=== PATIENT | male | born 1990 | race African-American/Black ===

== ENCOUNTER 2017-01-19 15:02 | Inpatient (IN) | payer BC ==
[~2017-01-19] VITALS: Ht 188 cm; Wt 150.6 kg
[2017-01-19] MEDS ORDERED: ONDANSETRON PF 4 MG/2 ML VIAL. IV ONE (16:00)
[2017-01-19] MEDS ORDERED: IV NORMAL SALINE 1000ML BAG 1,000 ML IV ONE (16:00)
[2017-01-19] MEDS ORDERED: NORMAL SALINE IV SCH (16:08)
[2017-01-19 16:19] LABS: BASO # 0.1 x10^3/uL (0.0-0.2); BASO % 1 % (0-3); EOS % 0 % (0-3); HEMATOCRIT 45.2 % (39.0-53.0); HEMOGLOBIN 15.7 g/dL (13.0-17.5); LYMPH # 2.2 x10^3/uL (1.0-4.8); LYMPH % 12 % (24-48); MEAN CORPUSCULAR HEMOGLOBIN 31 pg (25-35); MEAN CORPUSCULAR HGB CONC 35 g/dL (31-37); MEAN CORPUSCULAR VOLUME 89 fL (79-100); MONO % 7 % (0-9); NEUT % 80 % (31-73); PLATELET COUNT 321 x10^3/uL (140-400); RED BLOOD COUNT 5.09 x10^6/uL (4.30-5.70); RED CELL DISTRIBUTION WIDTH 12.9 % (11.5-14.5); WHITE BLOOD COUNT 18.1 x10^3/uL (4.0-11.0)
[2017-01-19] MEDS: IV NORMAL SALINE 1000ML BAG 1,000 ML IV SCH ×5 (16:27→20:55)
[2017-01-19] MEDS ORDERED: ACETAMINOPHEN 500 MG TABLET PO ONE (16:30)
[2017-01-19 16:35] LABS: CALCIUM 8.9 mg/dL (8.5-10.1); CREATININE 1.2 mg/dL (0.7-1.3); GFR 87.9; POTASSIUM 3.9 mmol/L (3.5-5.1)
--- NOTE | 2017-01-19 16:35 | EKG ---
[facility] [address] [place] [address] Test Date: 2017-01-19 Test Time: 16:32:16 Pat Name: JANNETH ROBLERO Department: Room: Gender: M [employer]: CODI : 1990 Requested By: RACHEL COLE Order Number: [id number] Reading MD: Irma Martinez Measurements Intervals [place] Rate: 113 P: 41 VT: 158 QRS: 49 QRSD: 82 T: 30 QT: 304 QTc: 422 Interpretive Statements SINUS TACHYCARDIA QRS(T) CONTOUR ABNORMALITY CONSIDER ANTEROLATERAL MYOCARDIAL DAMAGE RI6.01 No previous ECG available for comparison Electronically Signed On 01-20-2017 18:18:10 CDT by Irma Martinez
[2017-01-19 16:40] LABS: INR 1.1 (0.8-1.1); PARTIAL THROMBOPLASTIN TIME 28 SEC (24-38); PROTHROMBIN TIME PATIENT 13.2 SEC (11.7-14.0)
[2017-01-19 16:49] LABS: ALBUMIN 3.6 g/dL (3.4-5.0); ALBUMIN/GLOBULIN RATIO 0.8 (1.0-1.7); TOTAL BILIRUBIN 0.8 mg/dL (0.2-1.0); TOTAL PROTEIN 8.4 g/dL (6.4-8.2)
[2017-01-19 16:52] LABS: PLT ESTIMATE ADEQUATE (ADEQUATE)
--- NOTE | 2017-01-19 16:57 | RAD ---
Indication chest pain. A single view of the chest was obtained. No prior imaging of the chest is available. Heart size is at the upper limits of normal. There is no congestive heart failure or focal infiltrate. Significant pleural fluid is not present. IMPRESSION: No acute or focal process is seen in the chest
[2017-01-19 17:21] LABS: OBC FLU VALID
[2017-01-19] MEDS ORDERED: IOHEXOL 300 MG/ML 75 ML VIAL IV ONE (18:00)
[2017-01-19] MEDS ORDERED: CONTRAST GIVEN MC PRN (18:15)
[2017-01-19 18:34] LABS: BILIRUBIN,URINE NEGATIVE (NEG); GLUCOSE,URINE NEGATIVE (NEG); NITRITE,URINE NEGATIVE (NEG); PROTEIN,URINE NEGATIVE (NEG-TRACE)
--- NOTE | 2017-01-19 18:36 | RAD ---
PROCEDURE CT of the soft tissue neck with contrast HISTORY Sore throat. Fever. Nausea. TECHNIQUE Standard imaging after intravenous contrast. Exposure: One or more of the following individualized dose reduction techniques were utilized for this exam: 1. Automated exposure control. 2. Adjustment of the mA and/or kV according to patient size. 3. Use of iterative reconstruction technique. COMPARISON None FINDINGS There is limited detail on the images, presumably due to patient body habitus. Orbits appear unremarkable. [id number] mucosal thickening of the right maxillary sinus. Deficiency of the medial wall the right maxillary sinus could be due to destruction or prior surgery. Mucous retention cyst identified in the left maxillary sinus. Deviation of the nasal septum to the left. There is moderate to severe enlargement of the lingual tonsil, palatine tonsil and adenoids. These findings result in severe airway narrowing, with apparent complete occlusion at the level of the tonsils. No evidence parapharyngeal abscess at this time. The submandibular glands and the parotid glands appear unremarkable. Mild cervical lymph node enlargement on the right, largest measuring 19 millimeters. Mild left cervical lymph node enlargement, largest measuring 23 millimeters. No obvious thyroid lesion is seen. Lung apices appear clear. The temporomandibular joints demonstrate anterior subluxation bilaterally. Poor evaluation of the cervical vertebrae due to the artifact on the study. IMPRESSION 1. Moderate to severe enlargement of the lingual tonsils, palatine tonsils and adenoids, resulting in severe pharyngeal airway narrowing/occlusion. 2. No evidence of parapharyngeal abscess at this time. 3. Note there is some degradation of image quality due to body habitus. 4. Maxillary sinus disease. 5. Mild bilateral cervical lymph node enlargement. Electronically signed by: Brayan Malik MD (January 19, 2017 18:35:25)
[2017-01-19 18:40] LABS: BARBITURATES NEG (NEG); BENZODIAZEPINES NEG (NEG); CANNABINOIDS NEG (NEG); COCAINE NEG (NEG); METHADONE NEG (NEG); OPIATES POS (NEG); PHENCYCLIDINE NEG (NEG)
--- NOTE | 2017-01-19 18:44 | PHYS DOC ---
Past Medical History Past Medical History: No Pertinent History Past Surgical History: No Surgical History Alcohol Use: Occasionally Drug Use: None Adult General Chief Complaint Chief Complaint: SORE THROAT HPI HPI Patient is a 26 year old male who presents with complaint of fever and sore throat. Patient states symptoms started this morning upon awakening. Patient states he feels short of breath. Found to have O2 sat of 92% at triage. Admits to productive cough. Denies significant past medical history. Patient has not taken any medications for symptoms. Works in a [employer] and currently traveling from [place] where patient currently resides. States pain is severe and makes it difficult to swallow. Review of Systems Review of Systems Constitutional: Fever, chills [] Eyes: Denies change in visual acuity, redness, or eye pain [] HENT: Sore throat [] Respiratory: Cough, shortness of breath [] Cardiovascular: Denies chest pain[] GI: Denies abdominal pain, nausea, vomiting, bloody stools or diarrhea [] : Denies dysuria or hematuria [] Musculoskeletal: Bodyaches [] Integument: Denies rash or skin lesions [] Neurologic: Headache, denies focal weakness or sensory changes [] Current Medications Current Medications Current Medications Medications (Trade) Dose Ordered Sig/Beba Start Time Stop Time Status Last Admin Dose Admin Acetaminophen (Tylenol) 1,000 mg 1X ONCE 01/19/17 16:30 01/19/17 16:31 DC 01/19/17 16:59 1,000 MG Info (Do NOT chart on this entry -- for MONITORING) 1 each PRN DAILY PRN 01/19/17 18:15 01/21/17 18:14 Iohexol (Omnipaque 300 Mg/ml) 75 ml 1X ONCE 01/19/17 18:00 01/19/17 18:01 DC 01/19/17 18:03 75 ML Ondansetron HCl (Zofran) 4 mg 1X ONCE 01/19/17 16:00 01/19/17 16:02 DC 01/19/17 16:27 4 MG Sodium Chloride 1,000 ml @ 1,060 mls/hr Q57M 01/19/17 16:30 01/19/17 20:07 DC 01/19/17 19:06 1,060 MLS/HR Allergies Allergies Allergies Coded Allergies Type Severity Reaction Last Updated Verified No Known Drug Allergies 01/19/17 No Physical Exam Physical Exam Constitutional: Alert, febrile, appears ill and in moderate respiratory distress. [] HENT: Normocephalic, atraumatic, bilateral external ears normal, oropharynx erythematous, tonsillar swelling bilaterally, no oral exudates, nose normal. [] Eyes: PERRLA, EOMI, conjunctiva normal, no discharge. [] Neck: Normal range of motion, no tenderness, supple, no stridor. [] Cardiovascular:Tachycardia, normal rhythm, no murmur [] Lungs & Thorax: Bilateral breath sounds clear to auscultation [] Abdomen: Bowel sounds normal, soft, no tenderness, no masses, no pulsatile masses. [] Skin: Warm, dry, no erythema, no rash. [] Back: No tenderness, no CVA tenderness. [] Extremities: No tenderness, no cyanosis, no clubbing, ROM intact, no edema. [] Neurologic: Alert and oriented X 3, normal motor function, normal sensory function, no focal deficits noted. [] Current Patient Data Vital Signs Vital Signs Date Time Temp Pulse Resp B/P (MAP) Pulse Ox O2 Delivery O2 Flow Rate FiO2 01/19/17 18:41 104 23 186/94 (124) 96 Nasal Cannula 01/19/17 18:13 98.6 2.0 98.6 Lab Values Laboratory Tests Test 01/19/17 16:05 01/19/17 16:10 01/19/17 16:30 01/19/17 18:25 White Blood Count 18.1 x10^3/uL (4.0-11.0) H Red Blood Count 5.09 x10^6/uL (4.30-5.70) Hemoglobin 15.7 g/dL (13.0-17.5) Hematocrit 45.2 % (39.0-53.0) Mean Corpuscular Volume 89 fL (79-100) Mean Corpuscular Hemoglobin 31 pg (25-35) Mean Corpuscular Hemoglobin Concent 35 g/dL (31-37) Red Cell Distribution Width 12.9 % (11.5-14.5) Platelet Count 321 x10^3/uL (140-400) Neutrophils (%) (Auto) 80 % (31-73) H Lymphocytes (%) (Auto) 12 % (24-48) L Monocytes (%) (Auto) 7 % (0-9) Eosinophils (%) (Auto) 0 % (0-3) Basophils (%) (Auto) 1 % (0-3) Neutrophils # (Auto) 14.5 x10^3uL (1.8-7.7) H Lymphocytes # (Auto) 2.2 x10^3/uL (1.0-4.8) Monocytes # (Auto) 1.2 x10^3/uL (0.0-1.1) H Eosinophils # (Auto) 0.0 x10^3/uL (0.0-0.7) Basophils # (Auto) 0.1 x10^3/uL (0.0-0.2) Segmented Neutrophils % 78 % (35-66) H Band Neutrophils % 6 % (0-9) Lymphocytes % 12 % (24-48) L Monocytes % 4 % (0-10) Platelet Estimate Adequate (ADEQUATE) Prothrombin Time 13.2 SEC (11.7-14.0) Prothrombin Time INR 1.1 (0.8-1.1) PTT 28 SEC (24-38) D-Dimer (Lynsey) < 0.27 ug/mlFEU Sodium Level 137 mmol/L (136-145) Potassium Level 3.9 mmol/L (3.5-5.1) Chloride Level 101 mmol/L (98-107) Carbon Dioxide Level 27 mmol/L (21-32) Anion Gap 9 (6-14) Blood Urea Nitrogen 10 mg/dL (8-26) Creatinine 1.2 mg/dL (0.7-1.3) Estimated GFR (Cockcroft-Gault) 87.9 BUN/Creatinine Ratio 8 (6-20) Glucose Level 95 mg/dL (70-99) Lactic Acid Level 1.7 mmol/L (0.4-2.0) Calcium Level 8.9 mg/dL (8.5-10.1) Total Bilirubin 0.8 mg/dL (0.2-1.0) Aspartate Amino Transferase (AST) 31 U/L (15-37) Alanine Aminotransferase (ALT) 56 U/L (16-63) Alkaline Phosphatase 58 U/L (46-116) Troponin I Quantitative < 0.017 ng/mL (0.000-0.055) Total Protein 8.4 g/dL (6.4-8.2) H Albumin 3.6 g/dL (3.4-5.0) Albumin/Globulin Ratio 0.8 (1.0-1.7) L Lipase 90 U/L (73-393) Procalcitonin < 0.10 ng/mL (0.00-0.10) Ethyl Alcohol Level < 10 mg/dL (0-10) Group A Streptococcus Rapid Negative (NEGATIVE) Influenza Type A Antigen Negative (NEGATIVE) Influenza Type B Antigen Negative (NEGATIVE) Urine Collection Type Unknown Urine Color Yellow Urine Clarity Clear Urine pH 7.0 Urine Specific [place] 1.025 Urine Protein Negative mg/dL (NEG-TRACE) Urine Glucose (UA) Negative mg/dL (NEG) Urine Ketones (Stick) Negative mg/dL (NEG) Urine Blood Negative (NEG) Urine Nitrite Negative (NEG) Urine Bilirubin Negative (NEG) Urine Urobilinogen Dipstick 1.0 mg/dL (0.2 mg/dL) Urine Leukocyte Esterase Small (NEG) Urine RBC Occ /HPF (0-2) Urine WBC 1-4 /HPF (0-4) Urine Squamous Epithelial Cells Few /LPF Urine Bacteria 0 /HPF (0-FEW) Urine Mucus Slight /LPF Urine Opiates Screen Pos (NEG) Urine Methadone Screen Neg (NEG) Urine Barbiturates Neg (NEG) Urine Phencyclidine Screen Neg (NEG) Urine Amphetamine/Methamphetamine Neg (NEG) Urine Benzodiazepines Screen Neg (NEG) Urine Cocaine Screen Neg (NEG) Urine Cannabinoids Screen Neg (NEG) Urine Ethyl Alcohol Neg (NEG) Test 01/19/17 18:40 Lactic Acid Level 0.8 mmol/L (0.4-2.0) Laboratory Tests 01/19/17 16:05 Laboratory Tests 01/19/17 16:05 EKG EKG Interpreted by me: Heart rate 113, sinus tachycardia, normal intervals, normal axis, no acute ST/T-wave abnormalities present [] Radiology/Procedures Radiology/Procedures [facility] [address] [place] [address] IMAGING REPORT Signed PATIENT: JANNETH ROBLERO ACCOUNT: [id number] : 1990 LOCATION: ER AGE: 26 SEX: M EXAM STATUS: REG ER ORD. PHYSICIAN: RACHEL COLE APRN REASON: chest pain PROCEDURE: PORTABLE CHEST 1V Indication chest pain. A single view of the chest was obtained. No prior imaging of the chest is available. Heart size is at the upper limits of normal. There is no congestive heart failure or focal infiltrate. Significant pleural fluid is not present. IMPRESSION: No acute or focal process is seen in the chest DICTATED and SIGNED BY: HUSSEIN KITCHEN MD DATE: 01/19/171652 CC: IFEANYI BROUSSARD MD; RACHEL COLE APRN; UNKNOWN PCP NAME ~ [facility] [address] [place] [address] IMAGING REPORT Signed PATIENT: JANNETH ROBLERO ACCOUNT: [id number] : 1990 LOCATION: ER AGE: 26 SEX: M EXAM STATUS: REG ER ORD. PHYSICIAN: IFEANYI BROUSSARD MD REASON: sore throat, fever, evaluate for deep space infection PROCEDURE: CT SOFT TISSUE NECK W/CONTRAST PROCEDURE CT of the soft tissue neck with contrast HISTORY Sore throat. Fever. Nausea. TECHNIQUE Standard imaging after intravenous contrast. Exposure: One or more of the following individualized dose reduction techniques were utilized for this exam: 1. Automated exposure control. 2. Adjustment of the mA and/or kV according to patient size. 3. Use of iterative reconstruction technique. COMPARISON None FINDINGS There is limited detail on the images, presumably due to patient body habitus. Orbits appear unremarkable. [id number] mucosal thickening of the right maxillary sinus. Deficiency of the medial wall the right maxillary sinus could be due to destruction or prior surgery. Mucous retention cyst identified in the left maxillary sinus. Deviation of the nasal septum to the left. There is moderate to severe enlargement of the lingual tonsil, palatine tonsil and adenoids. These findings result in severe airway narrowing, with apparent complete occlusion at the level of the tonsils. No evidence parapharyngeal abscess at this time. The submandibular glands and the parotid glands appear unremarkable. Mild cervical lymph node enlargement on the right, largest measuring 19 millimeters. Mild left cervical lymph node enlargement, largest measuring 23 millimeters. No obvious thyroid lesion is seen. Lung apices appear clear. The temporomandibular joints demonstrate anterior subluxation bilaterally. Poor evaluation of the cervical vertebrae due to the artifact on the study. IMPRESSION 1. Moderate to severe enlargement of the lingual tonsils, palatine tonsils and adenoids, resulting in severe pharyngeal airway narrowing/occlusion. 2. No evidence of parapharyngeal abscess at this time. 3. Note there is some degradation of image quality due to body habitus. 4. Maxillary sinus disease. 5. Mild bilateral cervical lymph node enlargement. Electronically signed by: Brayan Malik MD (January 19, 2017 18:35:25) DICTATED and SIGNED BY: BRAYAN MALIK MD DATE: 01/19/17 2725 CC: IFEANYI BROUSSARD MD; UNKNOWN PCP NAME ~ [] Course & Med Decision Making Course & Med Decision Making Pertinent Labs and Imaging studies reviewed. (See chart for details) Patient was given over 2 L of IV fluids and remained tachycardic in the emergency department. Patient has leukocytosis and fever with suspected source of infection in the throat. Patient's CT does not show evidence of retropharyngeal or peritonsillar abscess. Due to tonsillar thickening, the patient may still have pharyngeal cellulitis. Patient will be admitted to the hospital for further treatment. I spoke with Dr. Hi who accepted care patient in hospital. Patient started on Unasyn. Dragon Disclaimer Dragon Disclaimer This electronic medical record was generated, in whole or in part, using a voice recognition dictation system. Departure Departure Impression: Primary Impression: Sepsis Additional Impression: Acute pharyngitis Disposition: ADMITTED INPATIENT Admitting Physician: Laura Hi Condition: GUARDED Referrals: UNKNOWN PCP NAME (PCP) Problem Qualifiers Primary Impression: Sepsis Sepsis type: sepsis due to unspecified organism Qualified Codes: A41.9 - Sepsis, unspecified organism Additional Impression: Acute pharyngitis Pharyngitis/tonsillitis etiology: unspecified etiology Qualified Codes: J02.9 - Acute pharyngitis, unspecified IFEANYI BROUSSARD MD January 19, 2017 18:44
[2017-01-19 18:49] LABS: BACTERIA,URINE 0 /HPF (0-FEW); RBC,URINE OCC /HPF (0-2); SQUAMOUS EPITHELIAL CELL,UR FEW /LPF
[2017-01-19] MEDS ORDERED: AMPICILLIN/SULBACTAM 3 GM in IV NORMAL SALINE 100ML 100 ML IV ONE (19:00)
[2017-01-19] MEDS ORDERED: ONDANSETRON PF 4 MG/2 ML VIAL. IV PRN (19:15)
[2017-01-19] MEDS ORDERED: ACETAMINOPHEN 325 MG TABLET. PO PRN (19:15)
[2017-01-19] MEDS ORDERED: DEXAMETHASONE SOD PHOS 20 MG/5 ML VIAL. IV ONE (19:15)
[2017-01-19] MEDS ORDERED: fentaNYL PF VIAL 100 MCG/2 ML VIAL IV PRN (19:15)
[2017-01-19 20:27] VITALS: BP 166/115
[2017-01-19] MEDS ORDERED: AMLO10TA4 PO (20:27)
[2017-01-19] MEDS ORDERED: amLODIPine BESYLATE 10 MG TABLET PO ONE (20:45)
--- NOTE | 2017-01-19 21:58 | PDOC1 ---
History and Physical Date of Admission Date of Admission DATE: 01/19/17 TIME: 21:57 Identification/Chief Complaint Chief Complaint shortness of breath Problems: Source Source: Chart review, Patient History of Present Illness History of Present Illness Mr. Cook is a 26 year old male who presents with complaint of fever and sore throat. Patient states symptoms started this morning upon awakening. Patient states he feels short of breath. Found to have O2 sat of 92% at triage. Admits to productive cough. Denies significant past medical history. Patient has not taken any medications for symptoms. Works in a [employer] and currently traveling from [place] where patient currently resides. States pain is severe and makes it difficult to swallow. Past Medical History Cardiovascular: HTN Pulmonary: No pertinent hx GI: No pertinent hx Heme/Onc: No pertinent hx Hepatobiliary: No pertinent hx ENT: No pertinent hx Renal/: No pertinent hx Family History Family History: No Significant Social History Smoke: No ALCOHOL: none Drugs: None Current Problem List Problem List Problems Medical Problems: (1) Acute pharyngitis Status: Acute (2) Sepsis Status: Acute Problems: Current Medications Current Medications Current Medications Sodium Chloride 1,000 ml @ 1,000 mls/hr 1X ONCE IV ; Start 01/19/17 at 16:00; Stop 01/19/17 at 16:59; Status Cancel Ondansetron HCl (Zofran) 4 mg 1X ONCE IV Last administered on 01/19/17 16:27; Start 01/19/17 at 16:00; Stop 01/19/17 at 16:02; Status DC Sodium Chloride 4,230 ml @ 1,060 mls/hr Q4H IV ; Start 01/19/17 at 16:08; Status Cancel Acetaminophen (Tylenol) 1,000 mg 1X ONCE PO Last administered on 01/19/17 16: 59; Start 01/19/17 at 16:30; Stop 01/19/17 at 16:31; Status DC Sodium Chloride 1,000 ml @ 1,060 mls/hr Q57M IV Last administered on 01/19/17 19:06; Start 01/19/17 at 16:30; Stop 01/19/17 at 20:07; Status DC Iohexol (Omnipaque 300 Mg/ml) 75 ml 1X ONCE IV Last administered on 01/19/17 18:03; Start 01/19/17 at 18:00; Stop 01/19/17 at 18:01; Status DC Info (Do NOT chart on this entry -- for MONITORING) 1 each PRN DAILY PRN MC SEE COMMENTS; Start 01/19/17 at 18:15; Stop 01/21/17 at 18:14 Ampicillin Sodium/ Sulbactam Sodium 3 gm/Sodium Chloride 100 ml @ 200 mls/hr Q6HRS IV ; Start 01/20/17 at 00:00 Ampicillin Sodium/ Sulbactam Sodium 3 gm/Sodium Chloride 100 ml @ 200 mls/hr 1X ONCE IV Last administered on 01/19/17 18:55; Start 01/19/17 at 19:00; Stop 01/19/17 at 19:29; Status DC Dexamethasone Sodium Phosphate (Decadron) 12 mg 1X ONCE IV Last administered on 01/19/17 19:11; Start 01/19/17 at 19:15; Stop 01/19/17 at 19:16; Status DC Ondansetron HCl (Zofran) 4 mg PRN Q8HRS PRN IV NAUSEA/VOMITING; Start 01/19/17 at 19:15; Stop 01/20/17 at 19:14 Fentanyl Citrate (Fentanyl 2ml Vial) 50 mcg PRN Q2HR PRN IV PAIN Last administered on 01/19/17 20:54; Start 01/19/17 at 19:15; Stop 01/20/17 at 19:14 Sodium Chloride 1,000 ml @ 125 mls/hr Q8H IV Last administered on 01/19/17 20: 55; Start 01/19/17 at 19:30; Stop 01/20/17 at 19:29 Acetaminophen (Tylenol) 650 mg PRN Q4HRS PRN PO FEVER Last administered on 20:54; Start 01/19/17 at 19:15; Stop 01/20/17 at 19:14 Amlodipine Besylate (Norvasc) 10 mg DAILY PO ; Start 01/20/17 at 09:00 Amlodipine Besylate (Norvasc) 10 mg ONCE ONCE PO Last administered on 20:54; Start 01/19/17 at 20:45; Stop 01/19/17 at 20:46; Status DC Active Scripts Active Reported Norvasc (Amlodipine Besylate) 10 Mg Tablet 10 Mg PO DAILY Allergies Allergies: Coded Allergies: No Known Drug Allergies (Unverified , 01/19/17) ROS General: YES: Chills, Fatigue, No: Night Sweats, Malaise, Appetite, Other PSYCHOLOGICAL ROS: No: Anxiety, Behavioral Disorder, Concentration difficultie , Decreased libido, Depression, Disorientation, Hallucinations, Hostility, Irritablity, Memory difficulties, Mood Swings, Obsessive thoughts, Physical abuse, Sexual abuse, Sleep disturbances, Suicidal ideation, Other Eyes: No Blurry vision, No Decreased vision, No Double vision, No Dry eyes, No Excessive tearing, No Eye Pain, No Itchy Eyes, No Loss of vision, No Photophobia , No Scotomata, No Uses contacts, No Uses glasses, No Other Respiratory: YES: Shortness of breath, Tachypnea, No: Cough, Hemoptysis, Orthopnea, Pleuritic Pain, SOB with excertion, Sputum Changes, Stridor, Wheezing, Other Cardiovascular: No Chest Pain, No Palpitations, No Orthopnea, No Paroxysmal Noc. Dyspnea, No Edema, No Lt Headedness, No Other Genitourinary: No Dysuria, No Frequency, No Incontinence, No Hematuria, No Retention, No Discharge, No Urgency, No Pain, No Flank Pain, No Other, No , No , No , No , No , No , No Musculoskeletal: No Gait Disturbance, No Joint Pain, No Joint Stiffness, No Joint Swelling, No Muscle Pain, No Muscular Weakness, No Pain In:, No Swelling In:, No Other Neurological: No Behavorial Changes, No Bowel/Bladder ControlChng, No Confusion , No Dizziness, No Gait Disturbance, No Headaches, No Impaired Coord/balance, No Memory Loss, No Numbness/Tingling, No Seizures, No Speech Problems, No Tremors, No Visual Changes, No Weakness, No Other Skin: No Dry Skin, No Eczema, No Hair Changes, No Lumps, No Mole Changes, No Mottling, No Nail Changes, No Pruritus, No Rash, No Skin Lesion Changes, No Other, No Acne Physical Exam General: Alert, Oriented X3, Cooperative, No acute distress HEENT: Atraumatic, PERRLA, EOMI, Mucous membr. moist/pink, Other (OP exam, tonsils visibly enlarged, but area is patent) Lungs: Clear to auscultation Heart: no gallops, no murmurs Abdomen: Normal bowel sounds, Soft Rectal Exam: not examined Extremities: No clubbing, No cyanosis, No edema, Normal pulses Skin: No significant lesion Neuro: Normal speech, Normal tone, Cranial nerves 3-12 NL Psych/Mental Status: Mental status NL, Mood NL Vitals Vitals Vital Signs Date Time Temp Pulse Resp B/P (MAP) Pulse Ox O2 Delivery O2 Flow Rate FiO2 01/19/17 21:24 20 97 Room Air 01/19/17 20:54 106 166/115 01/19/17 20:27 99.0 99.0 01/19/17 19:11 2.0 Labs Labs Laboratory Tests Test 01/19/17 16:05 01/19/17 16:30 01/19/17 18:25 01/19/17 18:40 White Blood Count 18.1 x10^3/uL (4.0-11.0) Red Blood Count 5.09 x10^6/uL (4.30-5.70) Hemoglobin 15.7 g/dL (13.0-17.5) Hematocrit 45.2 % (39.0-53.0) Mean Corpuscular Volume 89 fL (79-100) Mean Corpuscular Hemoglobin 31 pg (25-35) Mean Corpuscular Hemoglobin Concent 35 g/dL (31-37) Red Cell Distribution Width 12.9 % (11.5-14.5) Platelet Count 321 x10^3/uL (140-400) Neutrophils (%) (Auto) 80 % (31-73) Lymphocytes (%) (Auto) 12 % (24-48) Monocytes (%) (Auto) 7 % (0-9) Eosinophils (%) (Auto) 0 % (0-3) Basophils (%) (Auto) 1 % (0-3) Neutrophils # (Auto) 14.5 x10^3uL (1.8-7.7) Lymphocytes # (Auto) 2.2 x10^3/uL (1.0-4.8) Monocytes # (Auto) 1.2 x10^3/uL (0.0-1.1) Eosinophils # (Auto) 0.0 x10^3/uL (0.0-0.7) Basophils # (Auto) 0.1 x10^3/uL (0.0-0.2) Segmented Neutrophils % 78 % (35-66) Band Neutrophils % 6 % (0-9) Lymphocytes % 12 % (24-48) Monocytes % 4 % (0-10) Platelet Estimate Adequate (ADEQUATE) Prothrombin Time 13.2 SEC (11.7-14.0) Prothromb Time International Ratio 1.1 (0.8-1.1) Activated Partial Thromboplast Time 28 SEC (24-38) D-Dimer (Lynsey) < 0.27 ug/mlFEU Sodium Level 137 mmol/L (136-145) Potassium Level 3.9 mmol/L (3.5-5.1) Chloride Level 101 mmol/L (98-107) Carbon Dioxide Level 27 mmol/L (21-32) Anion Gap 9 (6-14) Blood Urea Nitrogen 10 mg/dL (8-26) Creatinine 1.2 mg/dL (0.7-1.3) Estimated GFR (Cockcroft-Gault) 87.9 BUN/Creatinine Ratio 8 (6-20) Glucose Level 95 mg/dL (70-99) Lactic Acid Level 1.7 mmol/L (0.4-2.0) 0.8 mmol/L (0.4-2.0) Calcium Level 8.9 mg/dL (8.5-10.1) Total Bilirubin 0.8 mg/dL (0.2-1.0) Aspartate Amino Transf (AST/SGOT) 31 U/L (15-37) Alanine Aminotransferase (ALT/SGPT) 56 U/L (16-63) Alkaline Phosphatase 58 U/L (46-116) Troponin I Quantitative < 0.017 ng/mL (0.000-0.055) Total Protein 8.4 g/dL (6.4-8.2) Albumin 3.6 g/dL (3.4-5.0) Albumin/Globulin Ratio 0.8 (1.0-1.7) Lipase 90 U/L (73-393) Procalcitonin < 0.10 ng/mL (0.00-0.10) Ethyl Alcohol Level < 10 mg/dL (0-10) Influenza Type A Antigen Negative (NEGATIVE) Influenza Type B Antigen Negative (NEGATIVE) Urine Collection Type Unknown Urine Color Yellow Urine Clarity Clear Urine pH 7.0 Urine Specific [place] 1.025 Urine Protein Negative mg/dL (NEG-TRACE) Urine Glucose (UA) Negative mg/dL (NEG) Urine Ketones (Stick) Negative mg/dL (NEG) Urine Blood Negative (NEG) Urine Nitrite Negative (NEG) Urine Bilirubin Negative (NEG) Urine Urobilinogen Dipstick 1.0 mg/dL (0.2 mg/dL) Urine Leukocyte Esterase Small (NEG) Urine RBC Occ /HPF (0-2) Urine WBC 1-4 /HPF (0-4) Urine Squamous Epithelial Cells Few /LPF Urine Bacteria 0 /HPF (0-FEW) Urine Mucus Slight /LPF Urine Opiates Screen Pos (NEG) Urine Methadone Screen Neg (NEG) Urine Barbiturates Neg (NEG) Urine Phencyclidine Screen Neg (NEG) Urine Amphetamine/Methamphetamine Neg (NEG) Urine Benzodiazepines Screen Neg (NEG) Urine Cocaine Screen Neg (NEG) Urine Cannabinoids Screen Neg (NEG) Urine Ethyl Alcohol Neg (NEG) Laboratory Tests Test 01/19/17 16:05 01/19/17 16:30 01/19/17 18:25 01/19/17 18:40 White Blood Count 18.1 x10^3/uL (4.0-11.0) Red Blood Count 5.09 x10^6/uL (4.30-5.70) Hemoglobin 15.7 g/dL (13.0-17.5) Hematocrit 45.2 % (39.0-53.0) Mean Corpuscular Volume 89 fL (79-100) Mean Corpuscular Hemoglobin 31 pg (25-35) Mean Corpuscular Hemoglobin Concent 35 g/dL (31-37) Red Cell Distribution Width 12.9 % (11.5-14.5) Platelet Count 321 x10^3/uL (140-400) Neutrophils (%) (Auto) 80 % (31-73) Lymphocytes (%) (Auto) 12 % (24-48) Monocytes (%) (Auto) 7 % (0-9) Eosinophils (%) (Auto) 0 % (0-3) Basophils (%) (Auto) 1 % (0-3) Neutrophils # (Auto) 14.5 x10^3uL (1.8-7.7) Lymphocytes # (Auto) 2.2 x10^3/uL (1.0-4.8) Monocytes # (Auto) 1.2 x10^3/uL (0.0-1.1) Eosinophils # (Auto) 0.0 x10^3/uL (0.0-0.7) Basophils # (Auto) 0.1 x10^3/uL (0.0-0.2) Segmented Neutrophils % 78 % (35-66) Band Neutrophils % 6 % (0-9) Lymphocytes % 12 % (24-48) Monocytes % 4 % (0-10) Platelet Estimate Adequate (ADEQUATE) Prothrombin Time 13.2 SEC (11.7-14.0) Prothromb Time International Ratio 1.1 (0.8-1.1) Activated Partial Thromboplast Time 28 SEC (24-38) D-Dimer (Lynsey) < 0.27 ug/mlFEU Sodium Level 137 mmol/L (136-145) Potassium Level 3.9 mmol/L (3.5-5.1) Chloride Level 101 mmol/L (98-107) Carbon Dioxide Level 27 mmol/L (21-32) Anion Gap 9 (6-14) Blood Urea Nitrogen 10 mg/dL (8-26) Creatinine 1.2 mg/dL (0.7-1.3) Estimated GFR (Cockcroft-Gault) 87.9 BUN/Creatinine Ratio 8 (6-20) Glucose Level 95 mg/dL (70-99) Lactic Acid Level 1.7 mmol/L (0.4-2.0) 0.8 mmol/L (0.4-2.0) Calcium Level 8.9 mg/dL (8.5-10.1) Total Bilirubin 0.8 mg/dL (0.2-1.0) Aspartate Amino Transf (AST/SGOT) 31 U/L (15-37) Alanine Aminotransferase (ALT/SGPT) 56 U/L (16-63) Alkaline Phosphatase 58 U/L (46-116) Troponin I Quantitative < 0.017 ng/mL (0.000-0.055) Total Protein 8.4 g/dL (6.4-8.2) Albumin 3.6 g/dL (3.4-5.0) Albumin/Globulin Ratio 0.8 (1.0-1.7) Lipase 90 U/L (73-393) Procalcitonin < 0.10 ng/mL (0.00-0.10) Ethyl Alcohol Level < 10 mg/dL (0-10) Influenza Type A Antigen Negative (NEGATIVE) Influenza Type B Antigen Negative (NEGATIVE) Urine Collection Type Unknown Urine Color Yellow Urine Clarity Clear Urine pH 7.0 Urine Specific [place] 1.025 Urine Protein Negative mg/dL (NEG-TRACE) Urine Glucose (UA) Negative mg/dL (NEG) Urine Ketones (Stick) Negative mg/dL (NEG) Urine Blood Negative (NEG) Urine Nitrite Negative (NEG) Urine Bilirubin Negative (NEG) Urine Urobilinogen Dipstick 1.0 mg/dL (0.2 mg/dL) Urine Leukocyte Esterase Small (NEG) Urine RBC Occ /HPF (0-2) Urine WBC 1-4 /HPF (0-4) Urine Squamous Epithelial Cells Few /LPF Urine Bacteria 0 /HPF (0-FEW) Urine Mucus Slight /LPF Urine Opiates Screen Pos (NEG) Urine Methadone Screen Neg (NEG) Urine Barbiturates Neg (NEG) Urine Phencyclidine Screen Neg (NEG) Urine Amphetamine/Methamphetamine Neg (NEG) Urine Benzodiazepines Screen Neg (NEG) Urine Cocaine Screen Neg (NEG) Urine Cannabinoids Screen Neg (NEG) Urine Ethyl Alcohol Neg (NEG) VTE Prophylaxis Ordered VTE Prophylaxis Devices: No VTE Pharmacological Prophylaxi: Yes Assessment/Plan Assessment/Plan acute pharyngitis, SIRS, sepsis IV abx, IV steroid, IV benadryl ID consult pt feels much improved, is breathing much easier, SUNITHA SCHERER MD January 19, 2017 21:58
[2017-01-19] MEDS ORDERED: DEXAMETHASONE SOD PHOS 4 MG/ML VIAL IV SCH (22:30)
[2017-01-19] MEDS ORDERED: DEXTROSE 50% 25 GM / 50ML DISP.SYRIN. IV PRN (22:30)
[2017-01-19] MEDS ORDERED: diphenhydrAMINE 50 MG/ML VIAL IVP ONE (22:45)
[2017-01-19 23:07] VITALS: BP 196/110
[2017-01-19] MEDS: AMPICILLIN/SULBACTAM 3 GM in IV NORMAL SALINE 100ML 100 ML IV SCH (23:33)
--- NOTE | 2017-01-20 02:26 | ACF ---
Admit Criteria Forms Admit Criteria Forms Admit Criteria Forms SEPSIS and OTHER FEBRILE ILLNESS, W/O FOCAL INFECTION Clinical Indications for Admission to Inpatient Care ( Place 'X' for any and all applicable criteria): Admission is indicated for ANY ONE of the following (1)(2)(3)(4): [ ] I. Bacteremia [ ]II. Suspected or identified specific infection requiring hospitalization (eg, meningitis, endocarditis) [ ]III. Hemodynamic instability [ ]IV. Altered mental status [ ]V. Failure or unavailability of outpatient antimicrobial treatment [ ]. Hypoxemia [ ]VII. Seizures [ ]VIII. High-risk febrile neutropenia [ ]IX. Need for parenteral antibiotic in patient who is likely to abuse vascular access device (eg, injection drug user) [A](7) [ ]X. Temperature greater than 104.9 degrees F (40.5 degrees C) (oral) [X]XI. Inpatient admission required rather than observation care because of ANY ONE of the following: [X]1) Specific infection identified that is too severe for outpatient treatment or observation care trial [ ]2) Metabolic disorder (eg, hypoglycemia, hyperglycemia, metabolic acidosis) that is severe or persistent [ ]3) Temperature greater than 103.1 degrees F (39.5 degrees C) ( oral) that is not responsive to observation care treatment [ ]4) IV fluid to replace significant ongoing (eg, for over 24 hours) losses (> 3 L/m2 per day) [ ]5) Supplemental oxygen or respiratory treatments for over 24 hours that is performable only in acute inpatient setting [ ]6) Parenteral nutrition regimen need that must be implemented on inpatient basis [ ]7) Strict or protective (eg, laminar flow) isolation [ ]8) Other condition, treatment or monitoring requiring inpatient admission Extended stay beyond goal length of stay may be needed for(1)(3) [ ]a) Sepsis or septic shock(22) [ ]b) Positive blood cultures [ ]c) Insufficient oral intake [ ]d) High-risk febrile neutropenia(29)(30) [ ]e) Continued fever and clinical instability [ ]f) Clinically active comorbid illness (e.g,heart failure, renal failure , diabetes) The original [employer] content created by [email or web address] has been revised. The portions of the content which have been revised are identified through the use of italic text or in bold, and [facility] has neither reviewed nor approved the modified material. All other unmodified content is copyright [facility]. Please see references footnoted in the original [facility] edition 2016 YONNY ORO January 20, 2017 02:26
[2017-01-20 03:13] VITALS: BP 152/80
[2017-01-20] MEDS: IV NORMAL SALINE 1000ML BAG 1,000 ML IV SCH ×2 (03:30→11:20)
[2017-01-20] MEDS ORDERED: DEXAMETHASONE SOD PHOS 4 MG/ML VIAL IV ONE (05:15)
[2017-01-20] MEDS: AMPICILLIN/SULBACTAM 3 GM in IV NORMAL SALINE 100ML 100 ML IV SCH ×2 (05:19→12:17)
[2017-01-20 06:10] LABS: CALCIUM 9.1 mg/dL (8.5-10.1); CREATININE 1.1 mg/dL (0.7-1.3); GFR 97.2; POTASSIUM 4.4 mmol/L (3.5-5.1)
[2017-01-20 06:12] LABS: BASO % 0 % (0-3); EOS % 0 % (0-3); HEMATOCRIT 45.1 % (39.0-53.0); HEMOGLOBIN 15.4 g/dL (13.0-17.5); LYMPH # 1.8 x10^3/uL (1.0-4.8); LYMPH % 10 % (24-48); MEAN CORPUSCULAR HEMOGLOBIN 31 pg (25-35); MEAN CORPUSCULAR HGB CONC 34 g/dL (31-37); MEAN CORPUSCULAR VOLUME 92 fL (79-100); MONO % 2 % (0-9); NEUT % 88 % (31-73); PLATELET COUNT 329 x10^3/uL (140-400); RED BLOOD COUNT 4.93 x10^6/uL (4.30-5.70); RED CELL DISTRIBUTION WIDTH 12.8 % (11.5-14.5); WHITE BLOOD COUNT 18.5 x10^3/uL (4.0-11.0)
[2017-01-20 06:53] LABS: NEGATIVE OBC STREP NEG; POSITIVE OBC STREP POS
[2017-01-20 07:00] VITALS: BP 159/105
[2017-01-20] MEDS: INSULIN ASPART 300 UNITS/3 ML INSULN.PEN SQ SCH ×2 (08:00→11:21)
[2017-01-20] MEDS ORDERED: ENOXAPARIN 40 MG/0.4 ML SYRINGE. SQ SCH ×2 (09:00→21:00)
[2017-01-20] MEDS ORDERED: amLODIPine BESYLATE 10 MG TABLET PO SCH (09:00)
[2017-01-20] MEDS ORDERED: DEXAMETHASONE SOD PHOS 4 MG/ML VIAL IV SCH (09:00)
[2017-01-20 10:44] VITALS: BP 153/94
--- NOTE | 2017-01-20 13:43 | PDOC ---
PROGRESS NOTES Chief Complaint Chief Complaint acute pharyngitis, SIRS, sepsis morbid obesity, BMI 42 htn, norvasc at home History of Present Illness History of Present Illness s/p IV abx, IV steroid, IV benadryl pt feels much improved, is breathing much easier, would like DC home Vitals Vitals Vital Signs Date Time Temp Pulse Resp B/P (MAP) Pulse Ox O2 Delivery O2 Flow Rate FiO2 01/20/17 10:44 97.5 90 22 153/94 (113) 98 Nasal Cannula 3.0 97.5 Physical Exam General: Alert, Oriented X3, Cooperative, No acute distress Abdomen: Normal bowel sounds, Soft Extremities: No clubbing, No cyanosis, No edema, Normal pulses Skin: No significant lesion Labs LABS Laboratory Tests Test 01/19/17 16:05 01/19/17 16:10 01/19/17 16:30 01/19/17 18:25 White Blood Count 18.1 x10^3/uL (4.0-11.0) Red Blood Count 5.09 x10^6/uL (4.30-5.70) Hemoglobin 15.7 g/dL (13.0-17.5) Hematocrit 45.2 % (39.0-53.0) Mean Corpuscular Volume 89 fL (79-100) Mean Corpuscular Hemoglobin 31 pg (25-35) Mean Corpuscular Hemoglobin Concent 35 g/dL (31-37) Red Cell Distribution Width 12.9 % (11.5-14.5) Platelet Count 321 x10^3/uL (140-400) Neutrophils (%) (Auto) 80 % (31-73) Lymphocytes (%) (Auto) 12 % (24-48) Monocytes (%) (Auto) 7 % (0-9) Eosinophils (%) (Auto) 0 % (0-3) Basophils (%) (Auto) 1 % (0-3) Neutrophils # (Auto) 14.5 x10^3uL (1.8-7.7) Lymphocytes # (Auto) 2.2 x10^3/uL (1.0-4.8) Monocytes # (Auto) 1.2 x10^3/uL (0.0-1.1) Eosinophils # (Auto) 0.0 x10^3/uL (0.0-0.7) Basophils # (Auto) 0.1 x10^3/uL (0.0-0.2) Segmented Neutrophils % 78 % (35-66) Band Neutrophils % 6 % (0-9) Lymphocytes % 12 % (24-48) Monocytes % 4 % (0-10) Platelet Estimate Adequate (ADEQUATE) Prothrombin Time 13.2 SEC (11.7-14.0) Prothromb Time International Ratio 1.1 (0.8-1.1) Activated Partial Thromboplast Time 28 SEC (24-38) D-Dimer (Lynsey) < 0.27 ug/mlFEU Sodium Level 137 mmol/L (136-145) Potassium Level 3.9 mmol/L (3.5-5.1) Chloride Level 101 mmol/L (98-107) Carbon Dioxide Level 27 mmol/L (21-32) Anion Gap 9 (6-14) Blood Urea Nitrogen 10 mg/dL (8-26) Creatinine 1.2 mg/dL (0.7-1.3) Estimated GFR (Cockcroft-Gault) 87.9 BUN/Creatinine Ratio 8 (6-20) Glucose Level 95 mg/dL (70-99) Lactic Acid Level 1.7 mmol/L (0.4-2.0) Calcium Level 8.9 mg/dL (8.5-10.1) Total Bilirubin 0.8 mg/dL (0.2-1.0) Aspartate Amino Transf (AST/SGOT) 31 U/L (15-37) Alanine Aminotransferase (ALT/SGPT) 56 U/L (16-63) Alkaline Phosphatase 58 U/L (46-116) Troponin I Quantitative < 0.017 ng/mL (0.000-0.055) Total Protein 8.4 g/dL (6.4-8.2) Albumin 3.6 g/dL (3.4-5.0) Albumin/Globulin Ratio 0.8 (1.0-1.7) Lipase 90 U/L (73-393) Procalcitonin < 0.10 ng/mL (0.00-0.10) Ethyl Alcohol Level < 10 mg/dL (0-10) Group A Streptococcus Rapid Negative (NEGATIVE) Influenza Type A Antigen Negative (NEGATIVE) Influenza Type B Antigen Negative (NEGATIVE) Urine Collection Type Unknown Urine Color Yellow Urine Clarity Clear Urine pH 7.0 Urine Specific [place] 1.025 Urine Protein Negative mg/dL (NEG-TRACE) Urine Glucose (UA) Negative mg/dL (NEG) Urine Ketones (Stick) Negative mg/dL (NEG) Urine Blood Negative (NEG) Urine Nitrite Negative (NEG) Urine Bilirubin Negative (NEG) Urine Urobilinogen Dipstick 1.0 mg/dL (0.2 mg/dL) Urine Leukocyte Esterase Small (NEG) Urine RBC Occ /HPF (0-2) Urine WBC 1-4 /HPF (0-4) Urine Squamous Epithelial Cells Few /LPF Urine Bacteria 0 /HPF (0-FEW) Urine Mucus Slight /LPF Urine Opiates Screen Pos (NEG) Urine Methadone Screen Neg (NEG) Urine Barbiturates Neg (NEG) Urine Phencyclidine Screen Neg (NEG) Urine Amphetamine/Methamphetamine Neg (NEG) Urine Benzodiazepines Screen Neg (NEG) Urine Cocaine Screen Neg (NEG) Urine Cannabinoids Screen Neg (NEG) Urine Ethyl Alcohol Neg (NEG) Test 01/19/17 18:40 01/20/17 05:30 01/20/17 11:04 Lactic Acid Level 0.8 mmol/L (0.4-2.0) White Blood Count 18.5 x10^3/uL (4.0-11.0) Red Blood Count 4.93 x10^6/uL (4.30-5.70) Hemoglobin 15.4 g/dL (13.0-17.5) Hematocrit 45.1 % (39.0-53.0) Mean Corpuscular Volume 92 fL (79-100) Mean Corpuscular Hemoglobin 31 pg (25-35) Mean Corpuscular Hemoglobin Concent 34 g/dL (31-37) Red Cell Distribution Width 12.8 % (11.5-14.5) Platelet Count 329 x10^3/uL (140-400) Neutrophils (%) (Auto) 88 % (31-73) Lymphocytes (%) (Auto) 10 % (24-48) Monocytes (%) (Auto) 2 % (0-9) Eosinophils (%) (Auto) 0 % (0-3) Basophils (%) (Auto) 0 % (0-3) Neutrophils # (Auto) 16.3 x10^3uL (1.8-7.7) Lymphocytes # (Auto) 1.8 x10^3/uL (1.0-4.8) Monocytes # (Auto) 0.4 x10^3/uL (0.0-1.1) Eosinophils # (Auto) 0.0 x10^3/uL (0.0-0.7) Basophils # (Auto) 0.0 x10^3/uL (0.0-0.2) Sodium Level 137 mmol/L (136-145) Potassium Level 4.4 mmol/L (3.5-5.1) Chloride Level 103 mmol/L (98-107) Carbon Dioxide Level 26 mmol/L (21-32) Anion Gap 8 (6-14) Blood Urea Nitrogen 11 mg/dL (8-26) Creatinine 1.1 mg/dL (0.7-1.3) Estimated GFR (Cockcroft-Gault) 97.2 Glucose Level 130 mg/dL (70-99) Calcium Level 9.1 mg/dL (8.5-10.1) Glucose (Fingerstick) 148 mg/dL (70-99) Review of Systems Review of Systems no n..v/d no dyspnea swallowing OK Assessment and Plan Assessmemt and Plan Problems Medical Problems: (1) Acute pharyngitis Status: Acute (2) Sepsis Status: Acute Problems: Comment Review of Relevant I have reviewed the following items gail (where applicable) has been applied. Labs Laboratory Tests Test 01/19/17 16:05 01/19/17 16:10 01/19/17 16:30 01/19/17 18:25 White Blood Count 18.1 x10^3/uL (4.0-11.0) Red Blood Count 5.09 x10^6/uL (4.30-5.70) Hemoglobin 15.7 g/dL (13.0-17.5) Hematocrit 45.2 % (39.0-53.0) Mean Corpuscular Volume 89 fL (79-100) Mean Corpuscular Hemoglobin 31 pg (25-35) Mean Corpuscular Hemoglobin Concent 35 g/dL (31-37) Red Cell Distribution Width 12.9 % (11.5-14.5) Platelet Count 321 x10^3/uL (140-400) Neutrophils (%) (Auto) 80 % (31-73) Lymphocytes (%) (Auto) 12 % (24-48) Monocytes (%) (Auto) 7 % (0-9) Eosinophils (%) (Auto) 0 % (0-3) Basophils (%) (Auto) 1 % (0-3) Neutrophils # (Auto) 14.5 x10^3uL (1.8-7.7) Lymphocytes # (Auto) 2.2 x10^3/uL (1.0-4.8) Monocytes # (Auto) 1.2 x10^3/uL (0.0-1.1) Eosinophils # (Auto) 0.0 x10^3/uL (0.0-0.7) Basophils # (Auto) 0.1 x10^3/uL (0.0-0.2) Segmented Neutrophils % 78 % (35-66) Band Neutrophils % 6 % (0-9) Lymphocytes % 12 % (24-48) Monocytes % 4 % (0-10) Platelet Estimate Adequate (ADEQUATE) Prothrombin Time 13.2 SEC (11.7-14.0) Prothromb Time International Ratio 1.1 (0.8-1.1) Activated Partial Thromboplast Time 28 SEC (24-38) D-Dimer (Lynsey) < 0.27 ug/mlFEU Sodium Level 137 mmol/L (136-145) Potassium Level 3.9 mmol/L (3.5-5.1) Chloride Level 101 mmol/L (98-107) Carbon Dioxide Level 27 mmol/L (21-32) Anion Gap 9 (6-14) Blood Urea Nitrogen 10 mg/dL (8-26) Creatinine 1.2 mg/dL (0.7-1.3) Estimated GFR (Cockcroft-Gault) 87.9 BUN/Creatinine Ratio 8 (6-20) Glucose Level 95 mg/dL (70-99) Lactic Acid Level 1.7 mmol/L (0.4-2.0) Calcium Level 8.9 mg/dL (8.5-10.1) Total Bilirubin 0.8 mg/dL (0.2-1.0) Aspartate Amino Transf (AST/SGOT) 31 U/L (15-37) Alanine Aminotransferase (ALT/SGPT) 56 U/L (16-63) Alkaline Phosphatase 58 U/L (46-116) Troponin I Quantitative < 0.017 ng/mL (0.000-0.055) Total Protein 8.4 g/dL (6.4-8.2) Albumin 3.6 g/dL (3.4-5.0) Albumin/Globulin Ratio 0.8 (1.0-1.7) Lipase 90 U/L (73-393) Procalcitonin < 0.10 ng/mL (0.00-0.10) Ethyl Alcohol Level < 10 mg/dL (0-10) Group A Streptococcus Rapid Negative (NEGATIVE) Influenza Type A Antigen Negative (NEGATIVE) Influenza Type B Antigen Negative (NEGATIVE) Urine Collection Type Unknown Urine Color Yellow Urine Clarity Clear Urine pH 7.0 Urine Specific [place] 1.025 Urine Protein Negative mg/dL (NEG-TRACE) Urine Glucose (UA) Negative mg/dL (NEG) Urine Ketones (Stick) Negative mg/dL (NEG) Urine Blood Negative (NEG) Urine Nitrite Negative (NEG) Urine Bilirubin Negative (NEG) Urine Urobilinogen Dipstick 1.0 mg/dL (0.2 mg/dL) Urine Leukocyte Esterase Small (NEG) Urine RBC Occ /HPF (0-2) Urine WBC 1-4 /HPF (0-4) Urine Squamous Epithelial Cells Few /LPF Urine Bacteria 0 /HPF (0-FEW) Urine Mucus Slight /LPF Urine Opiates Screen Pos (NEG) Urine Methadone Screen Neg (NEG) Urine Barbiturates Neg (NEG) Urine Phencyclidine Screen Neg (NEG) Urine Amphetamine/Methamphetamine Neg (NEG) Urine Benzodiazepines Screen Neg (NEG) Urine Cocaine Screen Neg (NEG) Urine Cannabinoids Screen Neg (NEG) Urine Ethyl Alcohol Neg (NEG) Test 01/19/17 18:40 01/20/17 05:30 01/20/17 11:04 Lactic Acid Level 0.8 mmol/L (0.4-2.0) White Blood Count 18.5 x10^3/uL (4.0-11.0) Red Blood Count 4.93 x10^6/uL (4.30-5.70) Hemoglobin 15.4 g/dL (13.0-17.5) Hematocrit 45.1 % (39.0-53.0) Mean Corpuscular Volume 92 fL (79-100) Mean Corpuscular Hemoglobin 31 pg (25-35) Mean Corpuscular Hemoglobin Concent 34 g/dL (31-37) Red Cell Distribution Width 12.8 % (11.5-14.5) Platelet Count 329 x10^3/uL (140-400) Neutrophils (%) (Auto) 88 % (31-73) Lymphocytes (%) (Auto) 10 % (24-48) Monocytes (%) (Auto) 2 % (0-9) Eosinophils (%) (Auto) 0 % (0-3) Basophils (%) (Auto) 0 % (0-3) Neutrophils # (Auto) 16.3 x10^3uL (1.8-7.7) Lymphocytes # (Auto) 1.8 x10^3/uL (1.0-4.8) Monocytes # (Auto) 0.4 x10^3/uL (0.0-1.1) Eosinophils # (Auto) 0.0 x10^3/uL (0.0-0.7) Basophils # (Auto) 0.0 x10^3/uL (0.0-0.2) Sodium Level 137 mmol/L (136-145) Potassium Level 4.4 mmol/L (3.5-5.1) Chloride Level 103 mmol/L (98-107) Carbon Dioxide Level 26 mmol/L (21-32) Anion Gap 8 (6-14) Blood Urea Nitrogen 11 mg/dL (8-26) Creatinine 1.1 mg/dL (0.7-1.3) Estimated GFR (Cockcroft-Gault) 97.2 Glucose Level 130 mg/dL (70-99) Calcium Level 9.1 mg/dL (8.5-10.1) Glucose (Fingerstick) 148 mg/dL (70-99) Laboratory Tests Test 01/19/17 16:05 01/19/17 16:10 01/19/17 16:30 01/19/17 18:25 White Blood Count 18.1 x10^3/uL (4.0-11.0) Red Blood Count 5.09 x10^6/uL (4.30-5.70) Hemoglobin 15.7 g/dL (13.0-17.5) Hematocrit 45.2 % (39.0-53.0) Mean Corpuscular Volume 89 fL (79-100) Mean Corpuscular Hemoglobin 31 pg (25-35) Mean Corpuscular Hemoglobin Concent 35 g/dL (31-37) Red Cell Distribution Width 12.9 % (11.5-14.5) Platelet Count 321 x10^3/uL (140-400) Neutrophils (%) (Auto) 80 % (31-73) Lymphocytes (%) (Auto) 12 % (24-48) Monocytes (%) (Auto) 7 % (0-9) Eosinophils (%) (Auto) 0 % (0-3) Basophils (%) (Auto) 1 % (0-3) Neutrophils # (Auto) 14.5 x10^3uL (1.8-7.7) Lymphocytes # (Auto) 2.2 x10^3/uL (1.0-4.8) Monocytes # (Auto) 1.2 x10^3/uL (0.0-1.1) Eosinophils # (Auto) 0.0 x10^3/uL (0.0-0.7) Basophils # (Auto) 0.1 x10^3/uL (0.0-0.2) Segmented Neutrophils % 78 % (35-66) Band Neutrophils % 6 % (0-9) Lymphocytes % 12 % (24-48) Monocytes % 4 % (0-10) Platelet Estimate Adequate (ADEQUATE) Prothrombin Time 13.2 SEC (11.7-14.0) Prothromb Time International Ratio 1.1 (0.8-1.1) Activated Partial Thromboplast Time 28 SEC (24-38) D-Dimer (Lynsey) < 0.27 ug/mlFEU Sodium Level 137 mmol/L (136-145) Potassium Level 3.9 mmol/L (3.5-5.1) Chloride Level 101 mmol/L (98-107) Carbon Dioxide Level 27 mmol/L (21-32) Anion Gap 9 (6-14) Blood Urea Nitrogen 10 mg/dL (8-26) Creatinine 1.2 mg/dL (0.7-1.3) Estimated GFR (Cockcroft-Gault) 87.9 BUN/Creatinine Ratio 8 (6-20) Glucose Level 95 mg/dL (70-99) Lactic Acid Level 1.7 mmol/L (0.4-2.0) Calcium Level 8.9 mg/dL (8.5-10.1) Total Bilirubin 0.8 mg/dL (0.2-1.0) Aspartate Amino Transf (AST/SGOT) 31 U/L (15-37) Alanine Aminotransferase (ALT/SGPT) 56 U/L (16-63) Alkaline Phosphatase 58 U/L (46-116) Troponin I Quantitative < 0.017 ng/mL (0.000-0.055) Total Protein 8.4 g/dL (6.4-8.2) Albumin 3.6 g/dL (3.4-5.0) Albumin/Globulin Ratio 0.8 (1.0-1.7) Lipase 90 U/L (73-393) Procalcitonin < 0.10 ng/mL (0.00-0.10) Ethyl Alcohol Level < 10 mg/dL (0-10) Group A Streptococcus Rapid Negative (NEGATIVE) Influenza Type A Antigen Negative (NEGATIVE) Influenza Type B Antigen Negative (NEGATIVE) Urine Collection Type Unknown Urine Color Yellow Urine Clarity Clear Urine pH 7.0 Urine Specific Dray[place] 1.025 Urine Protein Negative mg/dL (NEG-TRACE) Urine Glucose (UA) Negative mg/dL (NEG) Urine Ketones (Stick) Negative mg/dL (NEG) Urine Blood Negative (NEG) Urine Nitrite Negative (NEG) Urine Bilirubin Negative (NEG) Urine Urobilinogen Dipstick 1.0 mg/dL (0.2 mg/dL) Urine Leukocyte Esterase Small (NEG) Urine RBC Occ /HPF (0-2) Urine WBC 1-4 /HPF (0-4) Urine Squamous Epithelial Cells Few /LPF Urine Bacteria 0 /HPF (0-FEW) Urine Mucus Slight /LPF Urine Opiates Screen Pos (NEG) Urine Methadone Screen Neg (NEG) Urine Barbiturates Neg (NEG) Urine Phencyclidine Screen Neg (NEG) Urine Amphetamine/Methamphetamine Neg (NEG) Urine Benzodiazepines Screen Neg (NEG) Urine Cocaine Screen Neg (NEG) Urine Cannabinoids Screen Neg (NEG) Urine Ethyl Alcohol Neg (NEG) Test 01/19/17 18:40 01/20/17 05:30 01/20/17 11:04 Lactic Acid Level 0.8 mmol/L (0.4-2.0) White Blood Count 18.5 x10^3/uL (4.0-11.0) Red Blood Count 4.93 x10^6/uL (4.30-5.70) Hemoglobin 15.4 g/dL (13.0-17.5) Hematocrit 45.1 % (39.0-53.0) Mean Corpuscular Volume 92 fL (79-100) Mean Corpuscular Hemoglobin 31 pg (25-35) Mean Corpuscular Hemoglobin Concent 34 g/dL (31-37) Red Cell Distribution Width 12.8 % (11.5-14.5) Platelet Count 329 x10^3/uL (140-400) Neutrophils (%) (Auto) 88 % (31-73) Lymphocytes (%) (Auto) 10 % (24-48) Monocytes (%) (Auto) 2 % (0-9) Eosinophils (%) (Auto) 0 % (0-3) Basophils (%) (Auto) 0 % (0-3) Neutrophils # (Auto) 16.3 x10^3uL (1.8-7.7) Lymphocytes # (Auto) 1.8 x10^3/uL (1.0-4.8) Monocytes # (Auto) 0.4 x10^3/uL (0.0-1.1) Eosinophils # (Auto) 0.0 x10^3/uL (0.0-0.7) Basophils # (Auto) 0.0 x10^3/uL (0.0-0.2) Sodium Level 137 mmol/L (136-145) Potassium Level 4.4 mmol/L (3.5-5.1) Chloride Level 103 mmol/L (98-107) Carbon Dioxide Level 26 mmol/L (21-32) Anion Gap 8 (6-14) Blood Urea Nitrogen 11 mg/dL (8-26) Creatinine 1.1 mg/dL (0.7-1.3) Estimated GFR (Cockcroft-Gault) 97.2 Glucose Level 130 mg/dL (70-99) Calcium Level 9.1 mg/dL (8.5-10.1) Glucose (Fingerstick) 148 mg/dL (70-99) Medications Current Medications Sodium Chloride 1,000 ml @ 1,000 mls/hr 1X ONCE IV ; Start 01/19/17 at 16:00; Stop 01/19/17 at 16:59; Status Cancel Ondansetron HCl (Zofran) 4 mg 1X ONCE IV Last administered on 01/19/17t 16:27; Start 01/19/17 at 16:00; Stop 01/19/17 at 16:02; Status DC Sodium Chloride 4,230 ml @ 1,060 mls/hr Q4H IV ; Start 01/19/17 at 16:08; Status Cancel Acetaminophen (Tylenol) 1,000 mg 1X ONCE PO Last administered on 01/19/17 16: 59; Start 01/19/17 at 16:30; Stop 01/19/17 at 16:31; Status DC Sodium Chloride 1,000 ml @ 1,060 mls/hr Q57M IV Last administered on 01/19/17 19:06; Start 01/19/17 at 16:30; Stop 01/19/17 at 20:07; Status DC Iohexol (Omnipaque 300 Mg/ml) 75 ml 1X ONCE IV Last administered on 01/19/17 18:03; Start 01/19/17 at 18:00; Stop 01/19/17 at 18:01; Status DC Info (Do NOT chart on this entry -- for MONITORING) 1 each PRN DAILY PRN MC SEE COMMENTS; Start 01/19/17 at 18:15; Stop 01/21/17 at 18:14 Ampicillin Sodium/ Sulbactam Sodium 3 gm/Sodium Chloride 100 ml @ 200 mls/hr Q6HRS IV Last administered on 01/20/17 12:17; Start 01/20/17 at 00:00 Ampicillin Sodium/ Sulbactam Sodium 3 gm/Sodium Chloride 100 ml @ 200 mls/hr 1X ONCE IV Last administered on 01/19/17 18:55; Start 01/19/17 at 19:00; Stop 01/19/17 at 19:29; Status DC Dexamethasone Sodium Phosphate (Decadron) 12 mg 1X ONCE IV Last administered on 01/19/17 19:11; Start 01/19/17 at 19:15; Stop 01/19/17 at 19:16; Status DC Ondansetron HCl (Zofran) 4 mg PRN Q8HRS PRN IV NAUSEA/VOMITING; Start 01/19/17 at 19:15; Stop 01/20/17 at 19:14 Fentanyl Citrate (Fentanyl 2ml Vial) 50 mcg PRN Q2HR PRN IV PAIN Last administered on 01/19/17 20:54; Start 01/19/17 at 19:15; Stop 01/20/17 at 19:14 Sodium Chloride 1,000 ml @ 125 mls/hr Q8H IV Last administered on 01/20/17 11: 20; Start 01/19/17 at 19:30; Stop 01/20/17 at 19:29 Acetaminophen (Tylenol) 650 mg PRN Q4HRS PRN PO FEVER Last administered on 20:54; Start 01/19/17 at 19:15; Stop 01/20/17 at 19:14 Amlodipine Besylate (Norvasc) 10 mg DAILY PO Last administered on 01/20/17 09: 00; Start 01/20/17 at 09:00 Amlodipine Besylate (Norvasc) 10 mg ONCE ONCE PO Last administered on 20:54; Start 01/19/17 at 20:45; Stop 01/19/17 at 20:46; Status DC Enoxaparin Sodium (Lovenox Per Pharmacy Prophylaxis Dosing) 1 each PRN DAILY PRN MC SEE COMMENTS; Start 01/19/17 at 22:30 Enoxaparin Sodium (Lovenox 40mg Syringe) 40 mg DAILY SQ Last administered on 09:00; Start 01/20/17 at 09:00; Stop 01/20/17 at 12:30; Status DC Diphenhydramine HCl (Benadryl) 25 mg 1X ONCE IVP Last administered on 23:34; Start 01/19/17 at 22:45; Stop 01/19/17 at 22:46; Status DC Dexamethasone Sodium Phosphate (Decadron) 4 mg BID IV ; Start 01/19/17 at 22:30; Stop 01/19/17 at 22:32; Status DC Insulin Aspart (Novolog) 0-9 UNITS TIDWMEALS SQ ; Start 01/20/17 at 08:00 Dextrose (Dextrose 50%-Water Syringe) 12.5 gm PRN Q15MIN PRN IV SEE COMMENTS; Start 01/19/17 at 22:30 Dexamethasone Sodium Phosphate (Decadron) 4 mg BID IV Last administered on 09:01; Start 01/20/17 at 09:00 Dexamethasone Sodium Phosphate (Decadron) 12 mg 1X ONCE IV Last administered on 5/7/17at 05:18; Start 01/20/17 at 05:15; Stop 01/20/17 at 05:16; Status DC Enoxaparin Sodium (Lovenox 40mg Syringe) 40 mg Q12HR SQ ; Start 01/20/17 at 21:00 Active Scripts Active Reported Norvasc (Amlodipine Besylate) 10 Mg Tablet 10 Mg PO DAILY Vitals/I & O Vital Sign - Last 24 Hours 01/19/17 01/19/17 01/19/17 01/19/17 15:07 15:49 16:36 16:40 Temp 98.9 102.6 98.9 102.6 Pulse 124 118 114 114 Resp 20 28 40 40 B/P (MAP) 174/119 (137) 149/92 (111) 154/101 (118) Pulse Ox 100 94 92 92 O2 Delivery Room Air Room Air Room Air Room Air 01/19/17 01/19/17 01/19/17 01/19/17 17:10 18:13 18:41 19:11 Temp 98.6 98.6 Pulse 110 112 104 106 Resp 38 24 23 24 B/P (MAP) 135/77 (96) 174/98 (123) 186/94 (124) 163/83 (109) Pulse Ox 91 97 96 97 O2 Delivery Room Air Nasal Cannula Nasal Cannula Nasal Cannula O2 Flow Rate 2.0 2.0 01/19/17 01/19/17 01/19/17 01/19/17 19:35 20:27 20:39 20:54 Temp 99.0 99.0 Pulse 100 106 Resp 22 16 20 B/P (MAP) 143/90 (107) 166/115 (132) Pulse Ox 98 97 97 O2 Delivery Room Air Room Air Room Air Room Air 01/19/17 01/19/17 01/19/17 01/20/17 20:54 21:24 23:07 03:13 Temp 98.1 97.8 98.1 97.8 Pulse 106 104 78 Resp 20 16 14 B/P (MAP) 166/115 196/110 (138) 152/80 (104) Pulse Ox 97 97 93 O2 Delivery Room Air Room Air Nasal Cannula O2 Flow Rate 2.0 01/20/17 01/20/17 01/20/17 01/20/17 07:00 07:55 09:00 10:44 Temp 97.9 97.5 97.9 97.5 Pulse 76 76 90 Resp 22 22 B/P (MAP) 159/105 (123) 159/105 153/94 (113) Pulse Ox 100 98 O2 Delivery Room Air Nasal Cannula Nasal Cannula O2 Flow Rate 2.0 3.0 Intake and Output 01/19/17 01/19/17 01/20/17 15:00 23:00 07:00 Intake Total 3700 ml 2033 ml Output Total 550 ml 3300 ml Balance 3150 ml -1267 ml SUNITHA SCHERER MD January 20, 2017 13:43
--- NOTE | 2017-01-20 13:43 | PDOC ---
Infectious Disease Note Vital Sign Vital Signs Vital Signs Date Time Temp Pulse Resp B/P (MAP) Pulse Ox O2 Delivery O2 Flow Rate FiO2 01/20/17 10:44 97.5 90 22 153/94 (113) 98 Nasal Cannula 3.0 97.5 Labs Lab Laboratory Tests Test 01/19/17 16:05 01/19/17 16:10 01/19/17 16:30 01/19/17 18:25 White Blood Count 18.1 x10^3/uL (4.0-11.0) Red Blood Count 5.09 x10^6/uL (4.30-5.70) Hemoglobin 15.7 g/dL (13.0-17.5) Hematocrit 45.2 % (39.0-53.0) Mean Corpuscular Volume 89 fL (79-100) Mean Corpuscular Hemoglobin 31 pg (25-35) Mean Corpuscular Hemoglobin Concent 35 g/dL (31-37) Red Cell Distribution Width 12.9 % (11.5-14.5) Platelet Count 321 x10^3/uL (140-400) Neutrophils (%) (Auto) 80 % (31-73) Lymphocytes (%) (Auto) 12 % (24-48) Monocytes (%) (Auto) 7 % (0-9) Eosinophils (%) (Auto) 0 % (0-3) Basophils (%) (Auto) 1 % (0-3) Neutrophils # (Auto) 14.5 x10^3uL (1.8-7.7) Lymphocytes # (Auto) 2.2 x10^3/uL (1.0-4.8) Monocytes # (Auto) 1.2 x10^3/uL (0.0-1.1) Eosinophils # (Auto) 0.0 x10^3/uL (0.0-0.7) Basophils # (Auto) 0.1 x10^3/uL (0.0-0.2) Segmented Neutrophils % 78 % (35-66) Band Neutrophils % 6 % (0-9) Lymphocytes % 12 % (24-48) Monocytes % 4 % (0-10) Platelet Estimate Adequate (ADEQUATE) Prothrombin Time 13.2 SEC (11.7-14.0) Prothromb Time International Ratio 1.1 (0.8-1.1) Activated Partial Thromboplast Time 28 SEC (24-38) D-Dimer (Lynsey) < 0.27 ug/mlFEU Sodium Level 137 mmol/L (136-145) Potassium Level 3.9 mmol/L (3.5-5.1) Chloride Level 101 mmol/L (98-107) Carbon Dioxide Level 27 mmol/L (21-32) Anion Gap 9 (6-14) Blood Urea Nitrogen 10 mg/dL (8-26) Creatinine 1.2 mg/dL (0.7-1.3) Estimated GFR (Cockcroft-Gault) 87.9 BUN/Creatinine Ratio 8 (6-20) Glucose Level 95 mg/dL (70-99) Lactic Acid Level 1.7 mmol/L (0.4-2.0) Calcium Level 8.9 mg/dL (8.5-10.1) Total Bilirubin 0.8 mg/dL (0.2-1.0) Aspartate Amino Transf (AST/SGOT) 31 U/L (15-37) Alanine Aminotransferase (ALT/SGPT) 56 U/L (16-63) Alkaline Phosphatase 58 U/L (46-116) Troponin I Quantitative < 0.017 ng/mL (0.000-0.055) Total Protein 8.4 g/dL (6.4-8.2) Albumin 3.6 g/dL (3.4-5.0) Albumin/Globulin Ratio 0.8 (1.0-1.7) Lipase 90 U/L (73-393) Procalcitonin < 0.10 ng/mL (0.00-0.10) Ethyl Alcohol Level < 10 mg/dL (0-10) Group A Streptococcus Rapid Negative (NEGATIVE) Influenza Type A Antigen Negative (NEGATIVE) Influenza Type B Antigen Negative (NEGATIVE) Urine Collection Type Unknown Urine Color Yellow Urine Clarity Clear Urine pH 7.0 Urine Specific [place] 1.025 Urine Protein Negative mg/dL (NEG-TRACE) Urine Glucose (UA) Negative mg/dL (NEG) Urine Ketones (Stick) Negative mg/dL (NEG) Urine Blood Negative (NEG) Urine Nitrite Negative (NEG) Urine Bilirubin Negative (NEG) Urine Urobilinogen Dipstick 1.0 mg/dL (0.2 mg/dL) Urine Leukocyte Esterase Small (NEG) Urine RBC Occ /HPF (0-2) Urine WBC 1-4 /HPF (0-4) Urine Squamous Epithelial Cells Few /LPF Urine Bacteria 0 /HPF (0-FEW) Urine Mucus Slight /LPF Urine Opiates Screen Pos (NEG) Urine Methadone Screen Neg (NEG) Urine Barbiturates Neg (NEG) Urine Phencyclidine Screen Neg (NEG) Urine Amphetamine/Methamphetamine Neg (NEG) Urine Benzodiazepines Screen Neg (NEG) Urine Cocaine Screen Neg (NEG) Urine Cannabinoids Screen Neg (NEG) Urine Ethyl Alcohol Neg (NEG) Test 01/19/17 18:40 01/20/17 05:30 01/20/17 11:04 Lactic Acid Level 0.8 mmol/L (0.4-2.0) White Blood Count 18.5 x10^3/uL (4.0-11.0) Red Blood Count 4.93 x10^6/uL (4.30-5.70) Hemoglobin 15.4 g/dL (13.0-17.5) Hematocrit 45.1 % (39.0-53.0) Mean Corpuscular Volume 92 fL (79-100) Mean Corpuscular Hemoglobin 31 pg (25-35) Mean Corpuscular Hemoglobin Concent 34 g/dL (31-37) Red Cell Distribution Width 12.8 % (11.5-14.5) Platelet Count 329 x10^3/uL (140-400) Neutrophils (%) (Auto) 88 % (31-73) Lymphocytes (%) (Auto) 10 % (24-48) Monocytes (%) (Auto) 2 % (0-9) Eosinophils (%) (Auto) 0 % (0-3) Basophils (%) (Auto) 0 % (0-3) Neutrophils # (Auto) 16.3 x10^3uL (1.8-7.7) Lymphocytes # (Auto) 1.8 x10^3/uL (1.0-4.8) Monocytes # (Auto) 0.4 x10^3/uL (0.0-1.1) Eosinophils # (Auto) 0.0 x10^3/uL (0.0-0.7) Basophils # (Auto) 0.0 x10^3/uL (0.0-0.2) Sodium Level 137 mmol/L (136-145) Potassium Level 4.4 mmol/L (3.5-5.1) Chloride Level 103 mmol/L (98-107) Carbon Dioxide Level 26 mmol/L (21-32) Anion Gap 8 (6-14) Blood Urea Nitrogen 11 mg/dL (8-26) Creatinine 1.1 mg/dL (0.7-1.3) Estimated GFR (Cockcroft-Gault) 97.2 Glucose Level 130 mg/dL (70-99) Calcium Level 9.1 mg/dL (8.5-10.1) Glucose (Fingerstick) 148 mg/dL (70-99) Objective Assessment Pharyngitis/tonsillitis. strep screen neg. CT no evidence of abscess URI. Cough and nasal congestion past 1-2 wks Hypoxia ? ADAM Obesity Plan Plan of Care clinically better, wants to go home. ? Viral. Cousin with Bronchitis last week throat culture pending Unasyn and steroids. Can d/c home with Augmentin for 8 days and taper of steroids Try to wean O2 off. Did well with 6 min walk D/w Dr. Hi Thank you Attending Co-Sign Attending Co-Sign The patient was seen and interviewed as well as examined at the bedside. The chart was reviewed. The case was discussed. Agree with the plan of care. JAYLA LY APRN January 20, 2017 13:43 LIBAN DAVIS MD January 20, 2017 14:41
[2017-01-20 14:39] VITALS: BP 156/95
[2017-01-20] MEDS ORDERED: AMOX1TAB61 PO (14:40)
[2017-01-20] MEDS ORDERED: METH4TAB2 PO (14:40)
[2017-01-20] MEDS ORDERED: DIPH25CA58 PO (14:40)
--- NOTE | 2017-01-21 06:07 | CONS ---
DATE OF CONSULTATION: 01/20/2017 REFERRING PHYSICIAN: Dr. Hi. REASON FOR CONSULTATION: Pharyngitis. HISTORY OF PRESENT ILLNESS: The patient is a pleasant 26-year-old -English gentleman with a past medical history of obesity and hypertension, who is in [place] from [place] on work-related business. According to the patient, over the past 1-2 weeks, he has had a dry cough and nasal/sinus congestion. He thought maybe he was getting the flu. Yesterday morning, he woke up feeling cold, had a headache, increased effort to breathe, and nauseous with a painful swallow. His voice was raspy. He and his friend were heading back down to [place] when his friend became concerned and brought him to the ER. The patient denies fevers, aches, or sweats. His cousin had bronchitis a week ago. He did not use any [id number] medication for relief. On arrival, he had a fever of 102.6 with elevated white blood cell count of 18,100, segs 78%, and bands 6%. Group A strep screen was negative. CT soft tissue neck with contrast revealed [id number] enlargement of the lingual tonsils, palatine tonsils, and adenoid, resulting in severe pharyngeal airway narrowing/occlusion; no evidence of parapharyngeal abscess; maxillary sinus disease; and mild bilateral cervical lymph node enlargement. The patient was dosed with Unasyn and dexamethasone. ID has been asked to consult for further evaluation and antibiotic management. The patient is feeling much better. He is wanting to be discharged in order to catch a ride to go back home. He is breathing with less effort. His cough has improved. Mild headache, but not as bad. Swelling is less painful. He denies drooling or excessive salivation. He has a history of sore throat, but not as bad as this one. Denies ear pain or history of sinus surgery. The patient denies difficulty breathing while lying down. According to the RN note, he was noted to have some apneic spells during sleep. Denies rash. The patient's oxygen saturations were low on presentation, requiring supplemental oxygen. PAST MEDICAL HISTORY: Hypertension, obesity. PAST SURGICAL HISTORY: No significant surgical history. SOCIAL HISTORY: The patient lives in [place]. He works at the [employer]. He has a cigarette every so often with an alcoholic beverage. He is a heavy alcohol drinker and typically binges on days off work. FAMILY HISTORY: His father may have had diabetes mellitus. Denies heart disease or cancers. ALLERGIES: No known drug allergies. CURRENT MEDICATIONS: Unasyn and dexamethasone. Other medications are available and have been reviewed on the MAR. REVIEW OF SYSTEMS: Per HPI, otherwise all other review of systems is negative. PHYSICAL EXAMINATION: GENERAL: An -English gentleman, sitting upright, in no apparent distress. VITAL SIGNS: Afebrile. T-max 102.6, blood pressure 153/94, heart rate 90, respiratory rate 22, pulse oximetry is 98% on 3 liters nasal cannula. HEENT: Pupils are equally round and reactive. Normal conjunctivae. Oropharynx is mildly erythematous and enlarged tonsils nearly extending to the midline. Uvula midline. No exudate. Oral mucosa is pink and moist. No lesions seen. NECK: Supple, no adenopathy appreciated. LUNGS: Clear to auscultation. On 2 liters nasal cannula oxygen. HEART: Normal S1 and S2. ABDOMEN: Obese, bowel sounds are present, soft, and nontender. EXTREMITIES: No gross edema or cyanosis. SKIN: Without rash. Warm to touch. NEUROLOGIC: Alert and oriented x 3. He is ambulatory. LABORATORY DATA: Today's WBC is 18.5, hemoglobin 15.4, and platelet count 329,000. Electrolytes are unremarkable. Creatinine 1.1, BUN of 11, and glucose 130. Lactic acid 0.8. Procalcitonin less than 0.18. Urinalysis unremarkable for infection. Urine toxicology is positive for opiates. Influenza screen negative. Group A strep rapid negative. Soft tissue neck CT per HPI. Chest x-ray is unremarkable. Throat culture is pending. ASSESSMENT: 1. Pharyngitis and tonsillitis with a negative group A Streptococcus screen, possibly viral in nature. 2. Upper respiratory infection. 3. Hypoxia. 4. Possible obstructive sleep apnea. 5. Obesity. PLAN: The patient is clinically improving. Symptoms are most likely viral in nature. A throat culture is pending. He can go home with Augmentin for 8 days and taper the steroids. Oxygen to be weaned off. Thank you, Dr. Hi for asking us to participate in this patient's care. Should you have further questions or concerns, please call. The patient was seen and examined, and plan of care was implemented by Dr. Ramón Davis. RAMÓN DAVIS MD DR: GENO/diamante JOB#: [id number] / [id number]
== END 2017-01-20 15:25 | disposition home or self-care (01) | DRG 872 ==
LOC: ER 15:02 → 4 NORTH 18:45
PROVIDERS: ADMIT Internal Medicine; ATTEND Internal Medicine
DX: A41.9 Sepsis, unspecified organism (principal); Z68.41 Body mass index [BMI] 40.0-44.9, adult; E66.01 Morbid (severe) obesity due to excess calories; I10 Essential (primary) hypertension; J03.90 Acute tonsillitis, unspecified; J32.0 Chronic maxillary sinusitis; R09.02 Hypoxemia; G47.33 Obstructive sleep apnea (adult) (pediatric)
CPT/HCPCS: 36415; 70491; 71010; 80048; 80053; 81001; 82947; 83605; 83690; 84145; 84484; 85007; 85027; 85379; 85610; 85730; 87040; 87070; 87804; 87880; 93005; 94620; 96374; 96375; G0480; G0481; J0295; J1100; J1200; J1650; J1815; J2405; J3010; J7030; Q9967; 99285-25